=== PATIENT | female | born 1990 | race African-American/Black ===

== ENCOUNTER 2017-02-04 10:47 | Emergency (ER) | payer MEDICAID ==
[~2017-02-04] VITALS: Ht 165.1 cm; Wt 97.1 kg
[~2017-02-04 10:47] MED LIST: CEPH-91; HYDR-1421; SULF-35
[2017-02-04 11:26] VITALS: BP 130/96
[2017-02-04] MEDS ORDERED: cefTRIAXone SOD 1,000 MG VL IM ONE (11:45)
[2017-02-04] MEDS ORDERED: KETOROLAC TROMETH 60MG/2ML VIAL IM ONE (11:45)
== END 2017-02-04 12:14 | disposition home or self-care (01) ==
LOC: ER 10:53
DX: K02.9 Dental caries, unspecified (principal); L03.211 Cellulitis of face
CPT/HCPCS: 96372; 99284; J0696; J1885; 82962